=== PATIENT | male | born 1945 | race Caucasian/White ===

== ENCOUNTER 2017-03-07 11:29 | Emergency (ER) | payer OTHER, MEDICARE ==
--- NOTE | 2017-03-07 12:12 | EDPHY ---
H & P Time Seen by Provider: 03/07/17 12:04 HPI/ROS: CHIEF COMPLAINT: Leg pain HISTORY OF PRESENT ILLNESS: Patient is a 71-year-old male who presents to the emergency department with left leg pain. Patient states he was walking this morning when he developed left calf pain. The pain came on fairly suddenly. It radiates slightly up his leg. He describes pain in the posterior calf. It is not worse with movement. He denies any chest pain or shortness of breath. No previous clots. Patient's father did have both DVT and PE. Patient denies any recent travel history or periods of immobility. He does not smoke. REVIEW OF SYSTEMS: My complete review of systems is negative except as mentioned in the HPI. Past Medical/Surgical History: Includes hypertension and high cholesterol Past surgical history: Includes hernia repair and orthopedic surgery Social history: The patient does not smoke. He is Family history: The patient's father had DVT and PE. Smoking Status: Never smoked Physical Exam: 36.5, 113/82, 99, 18, 98% on room air GENERAL: Well-appearing, in no acute distress, alert. HEENT: Eyes normal to inspection, normal pharynx, no signs of dehydration. NECK: [No thyromegaly, no lymphadenopathy, supple. RESPIRATORY: Clear to auscultation bilaterally, no rales, rhonchi or wheezing. CVS: Regular rate and rhythm, no rubs, murmurs, or gallops. ABDOMEN: Soft, nontender, nondistended, no organomegaly. BACK: Normal to inspection, no CVA tenderness. SKIN: Normal color, no rash, warm, dry. No pallor. EXTREMITIES: No pedal edema, mild left posterior calf tenderness palpation, no Homans sign or cords, no joint swelling. NEURO/PSYCH: Alert and oriented x3, normal mood and affect, normal motor sensory exam. Constitutional: Initial Vital Signs Temperature (C) 36.5 C 03/07/17 11:40 Heart Rate 99 03/07/17 11:40 Respiratory Rate 18 03/07/17 11:40 Blood Pressure 113/82 H 03/07/17 11:40 O2 Sat (%) 98 03/07/17 11:40 O2 Delivery Mode Room Air Allergies/Adverse Reactions: rosuvastatin calcium [From Crestor] Allergy (Mild, Verified 03/07/17 11:45) PT REPORTS MUSCLE ACHES Home Medications: Medication Instructions Recorded Lisinopril [Zestril 20 mg (RX)] 05/28/12 Atorvastatin Calcium 03/07/17 Medical Decision Making - Diagnostics Imaging Results: Imaging Impressions Extremity Venous Study 03/07/17 12:12 Impression: No evidence of deep vein thrombosis in the left lower extremity. As also discussed with Dr. Shaw at 1:27 pm. ED Course/Re-evaluation: In the emergency department I discussed possible etiologies with the patient. I answered all his questions. Ultrasound left lower extremity was ordered. Left lower extremity ultrasound: Please refer the dictated report by Dr. Balderas. No DVT noted. 13 50: I discussed the results with the patient. I answered all his questions. Patient was given warnings prior to leaving. Differential Diagnosis: My differential includes but is not limited to DVT, strain, sprain, phlebitis, arterial occlusion, compartment syndrome Departure - Departure Disposition: Home, Routine, Self-Care Clinical Impression: Pain of left calf Condition: Good Instructions: Leg Pain (ED) Additional Instructions: Your ultrasound showed no DVT. Return with increasing pain, swelling, redness, fever, shortness of breath, chest pain or any other concerns. Referrals: Nguyễn Hoyt MD [Primary Care Provider] - 5-7 days, call for appt.
[2017-03-07 14:00] VITALS: BP 141/87; PULSE 88; RESP 16; TEMP 97.9; O2SAT 94
== END 2017-03-07 14:00 | disposition home or self-care (01) ==
LOC: CED 11:29
DX: M79.662 Pain in left lower leg (principal)
CPT/HCPCS: 93971-PO

== ENCOUNTER → 2017-12-02 | Outpatient (CLI) | payer OTHER, MEDICARE | LOC: BHFA 09:30 | PROVIDERS: ATTEND Internal Medicine Cardiovascular Disease | DX: I25.10 Atherosclerotic heart disease of native coronary artery without angina pectoris (principal) ==